=== PATIENT | male | born 1990 | race Caucasian/White ===

== ENCOUNTER 2020-11-24 16:55 | Emergency (ER) | payer OTHER ==
[2020-11-24] MEDS ORDERED: NORCO 5-325 TA1 EACH PO (20:52)
== END 2020-11-24 21:20 | disposition home or self-care (01) ==
LOC: FER 16:55
DX: S42.002A Fracture of unspecified part of left clavicle, initial encounter for closed fracture (principal); M25.522 Pain in left elbow; F17.210 Nicotine dependence, cigarettes, uncomplicated; Z88.0 Allergy status to penicillin; W11.XXXA Fall on and from ladder, initial encounter
CPT/HCPCS: 73030; 73080; 73200